=== PATIENT | female | born 1995 | race Caucasian/White ===

== ENCOUNTER 2021-02-20 16:04 | Emergency (ER) | payer OTHER, SELFPAY ==
[2021-02-20 16:40] VITALS: BP 134/65; PULSE 99; RESP 16; O2SAT 97; BMI 39.0
[2021-02-20 16:51] LABS: Bacteria Urine None Seen; RBC Urine None Seen (0-5/HPF)
[2021-02-20 17:35] LABS: WBC Urine 5-10/HPF (0-5/HPF)
[2021-02-20 17:36] LABS: Culture Indicated Urine Specimen Cultured
--- NOTE | 2021-02-20 18:31 | ED_ITS ---
HPI - General Adult General Chief complaint: Urogenital-Female Stated complaint: Extreme Back Pain, Frequent Urination Time Seen by Provider: 02/20/21 18:24 Source: patient Mode of arrival: Ambulatory Limitations: no limitations History of Present Illness HPI narrative: Patient is a 25-year-old female who is here for evaluation of lower back pain and frequent urination and burning in her vaginal area. She states she had an episode of this approximately 4 days ago which lasted a short period of time and then completely resolved. Has not had any symptoms since then until today the symptoms returned. She denies any concern for sexually transmitted infections. No history of sexually transmitted infections. She denies the possibility of . She has not any vaginal discharge. No vaginal bleeding. Does have urinary frequency but no dysuria. States that the burning is located in her vaginal area. Related Data Home Medications Medication Instructions Recorded Confirmed norgestimate-ethinyl estradiol QDAY #0 09/07/17 [TriNessa (28)] Previous Rx's Medication Instructions Recorded topiramate [Topamax] 200 mg PO BID #180 tab 09/07/17 Allergies Allergy/AdvReac Type Severity Reaction Status Date / Time No Known Allergies Allergy Uncoded 01/17/18 12:30 Review of Systems Constitutional Constitutional: Denies fever(s) and Denies headache(s) ENT Ears, Nose, Mouth, and Throat: Denies headache(s) Cardiovascular Cardiovascular: Denies chest pain and Denies dyspnea Respiratory Respiratory: Denies dyspnea Gastrointestinal Gastrointestinal: Denies abdominal pain, Denies nausea and Denies vomiting Genitourinary Genitourinary: Denies genital lesions and Reports urinary urgency Genitourinary: Denies abnormal menses, Denies genital lesions, Reports urinary urgency and Denies vaginal discharge Comments: Genital burning Musculoskeletal Musculoskeletal: Reports back pain Integumentary/Breasts Skin/Breast: Denies rash Neurologic Neurologic: Denies headache(s) Endocrine Endocrine: Reports system reviewed and no additional complaints, except as documented Hematologic/Lymphatic On Anticoagulants: No Allergic/Immunologic Allergic/Immunologic: Reports system reviewed and no additional complaints, except as documented Patient History Medical History Patient denies medical problems Surgical History (Updated 02/06/18 @ 06:05 by Conversion Provider) History of tonsillectomy Family History (Updated 09/07/17 @ 00:00 by Conversion Provider) Grandmother Age: 61 Arthritis Dementia PAT (paroxysmal atrial tachycardia) Mother Age: 43 Arthritis Anxiety Social History Smoking Status: Never smoker Smoking Status: Never smoker alcohol intake frequency: holidays/special occasions only Substance Use Type: does not use Exam Initial Vital Signs Initial Vital Signs: Vital Signs Pulse Rate 99 H 02/20/21 16:40 Respiratory Rate 16 02/20/21 16:40 Blood Pressure 134/65 02/20/21 16:40 Pulse Oximetry 97 02/20/21 16:40 Const General: cooperative and comfortable Limitations: mental status not altered HENMT Head: normal to inspection and normocephalic Resp Effort & Inspection: normal respiratory effort Cardio Rate: regular rate GI Inspection: non-distended External Female Exam: normal external appearance Speculum Exam - Vagina: normal appearance of the vagina, not erythematous, no lacerations and No vaginal bleeding Speculum Exam - Cervix: normal appearance of the cervix OB/External & Speculum: No vaginal bleeding Skin Lesions: no lesions Rashes: no rashes Neuro General: patient alert and patient awake Extrem General: capillary refill normal Psych Appearance: grossly normal and well kempt Course Orders Ordered: ED Orders 02/20/21 16:49 Urine Culture Stat Urine Microscopic Stat 02/20/21 19:05 Chlamydia/Gonoc/Myco Genital Stat ELIZABETH Prep Stat Wet Prep Tric BV Destiny Stat Vital Signs Vital signs: Vital Signs - 8 hr 02/20/21 20:12 Pulse Rate 98 H Respiratory Rate 16 Blood Pressure 148/94 H Pulse Oximetry 100 Medical Decision Making Lab Data Lab results reviewed: Yes I reviewed the patient's lab results. Labs: Lab Results 02/20/21 Range/Units 16:49 Urine RBC None seen (0-5/HPF) Urine WBC 5-10/hpf H (0-5/HPF) Urine Bacteria None seen (None) Ur Culture Indicated? Specimen cultured Point of Care Testing Test Results Negative Urine Dip Bedside Urine Glucose Negative Bedside Urine Bilirubin - Negative Bedside Urine Ketone - Negative Urine Specific [place] 1.015 Bedside Urine Occult Blood - Negative Bedside Urine pH 6.0 Bedside Urine Protein - Negative Bedside Urine Urobilinogen - Negative Bedside Urine Nitrite - Negative Bedside Urine Leukocytes +/- 15 Esterase Point of care testing: Point of Care Testing Test Results Negative Urine Dip Bedside Urine Glucose Negative Bedside Urine Bilirubin - Negative Bedside Urine Ketone - Negative Urine Specific [place] 1.015 Bedside Urine Occult Blood - Negative Bedside Urine pH 6.0 Bedside Urine Protein - Negative Bedside Urine Urobilinogen - Negative Bedside Urine Nitrite - Negative Bedside Urine Leukocytes +/- 15 Esterase MDM Narrative Medical decision making narrative: Her test is negative. Urine has white blood cells but no other signs of infection. A urine culture was pending at the discharge no feel that we should hold on any antibiotics until this culture has resulted. I did discuss this with the patient of we will contact her if we need to start any antibiotics. Her exam is very benign. ELIZABETH and wet prep showed no signs of bacterial vaginosis or yeast infection or Trichomonas. I have low suspicion for pyelonephritis. Low suspicion for kidney stone given her presentation. Does not appear to be any infection that would require antibiotics. Hold on further workup for now and have the patient contact her primary provider and he will contact her we need to start antibiotics once the culture results. She expressed understanding and agreement. Discharge Plan Departure Patient Disposition: Home Clinical Impression: Lower back pain, Vaginal burning Activity Restrictions/Additional Instructions: A urine culture was pending at the time of your discharge we will contact you if we need to start any antibiotics. Recommend you contact your primary provider for a follow-up. The rest of your workup today does not show any other signs of infections. Recommend that you continue with Tylenol/ibuprofen as the rest of your medications. Return to the emergency department for any new or worsening symptoms Prescriptions: No Action norgestimate-ethinyl estradiol [TriNessa (28)] 1 EACH tablet QDAY Qty: 0 RF: 0 topiramate [Topamax] 200 MG tablet 200 mg PO BID Qty: 180 RF: 3
[2021-02-20 20:12] VITALS: BP 148/94; PULSE 98; RESP 16; O2SAT 100
[2021-02-25 04:58] LABS: Chlamydia trachomatis Negative (Negative); Mycoplasma genitalium Negative (Negative); Neisseria gonorrhoeae Negative (Negative)
== END 2021-02-20 20:12 | disposition home or self-care (01) ==
PROVIDERS: Emergency Medicine; Emergency Provider Emergency Medicine
DX: M54.5 Low back pain (principal); N94.9 Unspecified condition associated with female genital organs and menstrual cycle; R35.0 Frequency of micturition
CPT/HCPCS: 81003; 81015; 81025; 87077; 87086; 87186; 87210; 87220; 87491; 87563; 87591; 99283